=== PATIENT | male | born 1995 | race African-American/Black ===

== ENCOUNTER 2020-11-09 22:18 | Emergency (ER) | payer OTHER ==
[~2020-11-09] VITALS: Ht 195.6 cm; Wt 151.5 kg
[2020-11-09] MEDS ORDERED: HYDROXYZINE HCL50 MG PO (23:20)
[2020-11-09 23:28] VITALS: BP 149/88
== END 2020-11-09 23:28 | disposition home or self-care (01) ==
LOC: ER 22:18
DX: F41.0 Panic disorder [episodic paroxysmal anxiety] (principal); R42 Dizziness and giddiness